=== PATIENT | male | born 1990 | race Caucasian/White ===

== ENCOUNTER 2023-02-23 14:33 | Emergency (ER) | payer SELFPAY ==
--- NOTE | ~2023-02-23 | XR_ITS ---
EXAMINATION: XR SHOULDER, LEFT CLINICAL INFORMATION: Trauma COMPARISON: None available. TECHNIQUE: Four views of the left shoulder. FINDINGS: No acute visible fracture or dislocation. Joint spaces and alignment are maintained. Soft tissues are unremarkable. Visualized portions of the left chest are unremarkable. XR/XR shoulder LT min 2V IMPRESSION: No acute visible fracture or dislocation.
--- NOTE | ~2023-02-23 | CT_ITS ---
EXAMINATION: CT HEAD WITHOUT CONTRAST CLINICAL INFORMATION: Loss of consciousness after injury. Rule out bleed. COMPARISON: None available. TECHNIQUE: Contiguous axial imaging was performed from the skull base to vertex without intravenous administration of contrast. This CT examination was performed using dose optimization techniques as appropriate, variously including the following: *Automated exposure control *Adjustment of mA and/or kV according to patient size (this includes techniques or standardized protocols for targeted exams where dose is matched to indication/reason for exam; i.e. extremities or head) *Use of iterative reconstruction technique DLP: 606 mGy-cm FINDINGS: There is no acute intra-axial, extra-axial bleed, masses or midline shift. There is no acute infarction evolution. There is no edema. The frye to white matter differentiation is maintained normal. The lateral ventricles are symmetrical in size and configuration without enlargement. Bone windows reveal no calvarial abnormality. Bilateral paranasal sinuses and mastoid air cells are well-aerated. There is no scalp soft tissue abnormality. CT/CT head/brain wo IV con IMPRESSION: No acute intracranial process seen.
--- NOTE | ~2023-02-23 | XR_ITS ---
EXAMINATION: XR CHEST CLINICAL INFORMATION: Trauma COMPARISON: None available. TECHNIQUE: 2 views of the chest were obtained. FINDINGS: Left basilar atelectasis. No pneumothorax. Trachea is midline. Cardiomediastinal silhouette is not enlarged. No large osseous structures are intact. Soft tissues are unremarkable. XR/XR chest 2V IMPRESSION: Left basilar atelectasis.
[2023-02-23 14:55] VITALS: BP 131/78; PULSE 80; RESP 18; TEMP 36.9; O2SAT 97; BMI 34.3
--- NOTE | 2023-02-23 14:57 | ED.GENADULT ---
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 ? 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 He reports that he was at work when ?a large piece of the sheet rock ceiling fell on top of me. ? He was wearing his hard hat He states that he was struck mostly in the left side of the face and shoulder He initially felt well and had no complaints Over next few hours he developed some left shoulder pain, left facial pain and left chest pain where he was struck by the sheet rock Denies any numbness, tingling He does have pain with inspiration Denies any loss of consciousness, no neck pain Related Data Allergies Allergy/AdvReac Type Severity Reaction Status Date / Time No Known Allergies Allergy Verified 02/23/23 15:02 Review of Systems Constitutional: Constitutional: Denies chills, Denies fever(s), Denies frequent falls and Denies headache(s) Eyes: Eyes: Denies blurry vision ENT: Denies headache(s) Cardiovascular: Comments: Left chest wall pain Respiratory: Respiratory: Reports pain on inspiration Gastrointestinal: Gastrointestinal: Denies abdominal pain Musculoskeletal: Musculoskeletal: Reports arthralgias and Reports limited range of motion Integumentary/Breasts: Skin/Breast: Denies rash Neurologic: Denies frequent falls and Denies headache(s) Psychiatric: Psychiatric: Denies depression PMFSH Social History Social History Advance Directives: No Advance Directives Information Provided: No Physical Exam ED Vital Signs: Vital Signs - 24 hr 02/23/23 14:55 Temperature 98.5 F Pulse Rate 80 Respiratory Rate 18 Blood Pressure 131/78 Pulse Oximetry 97 Oxygen Delivery Method Room Air BMI result Body Mass Index 34.3 Const General: healthy appearing, comfortable, no acute distress, alert and awake Nutritional Appearance: well nourished Orientation/consciousness: patient oriented x3 HENMT Head: Yes normocephalic and Yes atraumatic Eyes Eyelids: Yes eyelids normal Conjunctivae: conjunctivae normal Sclerae: sclerae normal Corneas: corneas normal Pupils: Equal, round and reactive pupils present EOM: EOMs intact bilaterally Neck Neck: Yes full ROM Resp Effort & Inspection: normal respiratory effort, able to speak in complete sentences, no audible wheezes and not labored Auscultation: clear to auscultation bilaterally GI Inspection: No distended Palpation (GI): Soft to palpation, not firm, nontender, no guarding and not rigid Back/Spine/Pelvis Other: No C-spine tenderness Skin Other: Small 2 cm linear, full-thickness laceration to the right posterior elbow. Full range of motion flexion extension of the elbow Patient has small linear contusion to left cheek and 1 to the left upper neck General skin exam: elasticity normal Neuro General: patient oriented x3 Cranial nerves: Yes Equal, round and reactive pupils present and Yes Bilaterally intact EOM present Cognition (Neuro): normal cognition Extrem Other: Patient has mild tenderness to left shoulder and the anterior aspect over the acromioclavicular joint. No deformity. Patient has full range of motion left shoulder. 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 work doing construction and the ceiling fell and next thing he remembers he was being pulled out from under the debris Patient is well appearing ambulates easily X-rays of left shoulder, chest and head CT are ordered This is rapid medical exam pending full evaluation and dispo by ER provider Medications Administered Discontinued Medications Generic Name Dose Route Start Last Admin Trade Name Freq PRN Reason Stop Dose Admin Diphtheria/Tetanus/Acell Pertussis 0.5 ml 02/23/23 17:29 02/23/23 17:41 Diphth,Pertus(Acell),Tet Adult 0.5 Ml Syringe IM 02/23/23 17:30 0.5 ml .ONCE ONE Administration Lidocaine/Epinephrine 10 ml 02/23/23 17:25 02/23/23 17:41 Lidocaine Hcl 1%/Epi 1:100,000 10 Ml Vial INFILTRATI 02/23/23 17:26 10 ml ONCE ONE Administration Procedures Laceration Laceration 1: Site: upper extremity (Right elbow) Side (If applicable): right Size (cm): 2 Description: linear Depth: simple, single layer Local Anesthetic: lidocaine 1% and with epi Amount of anesthesia used (mL): 3 Pre-repair: wound explored and irrigated extensively Skin layer closed with: nylon Size (cm): 5-0 Number of sutures: 4 Technique: simple, interrupted Medical Decision Making Medical Decision Making MDM Narrative: 32-year-old male presents for evaluation after a piece of sheet rock fell onto him at work. He was wearing his hard hat, denies any headache or loss of conscious. He has no neck pain or neck pain or C-spine tenderness. He has some left shoulder pain. X-ray negative the left shoulder. He has some chest pain. He is tender to palpation left anterior chest wall without deformity or crepitus. Chest x-ray is negative for pneumothorax. Does not seem cardiac in nature as the pain is reproducible and after an injury. Laceration the right elbow will be repaired, see procedure note. Tetanus updated as the patient reports his last tetanus was over 10 years ago Differential Diagnosis Differential Diagnoses: The differential diagnosis associated with the presentation includes Contusion Laceration Intracranial hemorrhage Shoulder fracture Dislocation Independent Interpretation I performed an independent interpretation of an: Plain X-Ray (Agree with Radiology interpretation) and CT Scan (Agree with Radiology interpretation, no intracranial hemorrhage) Radiology Impression Discussion of test interpretation with radiology: I have reviewed the radiologist's reading. (No acute visible fracture or dislocation of the left shoulder) Radiologist Impression: Left basilar atelectasis. No pneumothorax Brain CT, no acute intracranial process seen Discharge Plan Discharge Clinical Impression: Contusion of face, Acute shoulder pain, Laceration of elbow, right Patient Disposition: Home, Self-Care Instructions: Laceration (ED) Additional Instructions: Your 4 sutures can be removed in 7-10 days. Keep the right elbow clean and dry You may follow-up with your primary doctor or return to the ER to have them removed Your x-rays and CT scan were negative for significant injury Use ibuprofen or Tylenol for pain Follow-up with your primary doctor
[2023-02-23] MEDS: Diphth,Pertus(ACell),Tet Adult 0.5 ML SYRINGE IM (17:41)
[2023-02-23] MEDS: Lidocaine HCl 1%/Epi 1:100,000 10 ML VIAL INFILTRATI (17:41)
== END 2023-02-23 18:11 | disposition home or self-care (01) ==
PROVIDERS: Emergency Provider Emergency Medicine
DX: S51.011A Laceration without foreign body of right elbow, initial encounter (principal); S00.83XA Contusion of other part of head, initial encounter; S10.93XA Contusion of unspecified part of neck, initial encounter; W20.8XXA Other cause of strike by thrown, projected or falling object, initial encounter; M25.512 Pain in left shoulder; R51.9 Headache, unspecified; Y93.H3 Activity, building and construction; Y92.9 Unspecified place or not applicable; Y99.0 Civilian activity done for income or pay
CPT/HCPCS: 12001; 70450; 71046; 73030; 90471; 90715; 99283; 99284